=== PATIENT | male | born 1950 | race Caucasian/White ===

== ENCOUNTER 2025-08-15 20:58 | Emergency (ER) | payer MEDICARE, SELFPAY ==
--- NOTE | 2025-08-15 21:07 | ED.AMS ---
HPI - Altered Mental Status General Time Seen by Provider: 21:07 Date Seen: 08/15/25 Chief Complaint: Altered Mental Status Stated Complaint: confused, constipated Time Seen by Provider: 08/15/25 21:07 Source: patient and family (daughter) Mode of arrival: ambulatory History of Present Illness HPI narrative: Naseem is a 75 yo male who presents to the ED for evaluation of AMS. Patient presents tonight with his daughter for evaluation of confusion, increased urinary frequency, and constipation. Patient lives at home however does have children that live nearby. Yesterday patient tried calling his daughter however he kept getting the number around and calling the insurance company. Insurance called the daughter with concerns. Patient presents tonight with his other daughter who notes this episode happened yesterday however states that today she feels as if he is acting his normal self. Patient does report he did have an episode in which he has cold hands, some discomfort on the right side of his face as well as concerns that he has had some constipation and that is stool softener is not working as well as it used to. Patient does have a history of chronic constipation and typically takes a stool softener daily. Patient reports decreased p.o. intake however does note increased urinary frequency. Patient denies any dysuria, hematuria denies any recent trauma, falls. Denies any recent illnesses, fever, chest pain, cough, shortness of breath, abdominal pain. Patient reports he is feeling good at the moment. No other complaints. Related Data Home Medications ?Medication ?Instructions ?Recorded ?Confirmed docusate sodium 100 mg capsule 100 mg PO DAILY 08/15/25 08/15/25 magnesium 200 mg tablet 200 mg PO DAILY 08/15/25 08/15/25 omega 7-mwi-ajw-fish oil 1,000 mg 1 cap PO DAILY 08/15/25 08/15/25 (120 mg-180 mg) capsule (Fish Oil) Allergies Allergy/AdvReac Type Severity Reaction Status Date / Time No Known Drug Allergies Allergy Verified 08/15/25 21:07 Review of Systems Narrative: Past medical history, past surgical history, medications, allergies, family history, and social history were reviewed with the patient. No additional pertinent items. A medically appropriate review of systems was performed with pertinent positives and negatives noted in HPI, all other systems negative. Exam Narrative: Exam Narrative: General: Afebrile, no acute distress HEENT: Normocephalic, atraumatic, conjunctiva normal. PERRL, EOMI, MMM Neck: non-tender, supple Cardio: regular rate. regular rhythm Resp: Normal work of breathing, no respiratory distress, lungs clear bilaterally, no wheezing, rhonchi, rales Chest/Back: no visual signs of trauma, no midline tenderness, no CVA tenderness Abdomen: soft, non distension, no tenderness, no peritoneal signs Neuro: alert and fully oriented. CN II-XII intact. Normal strength and sensation in all extremities. Normal gait MSK: no deformities. Normal range of motion Integumentary/Skin: no rash visualized, normal color Psych: normal affect, normal behavior Const: Vital Signs, click to edit/add: Vital Signs - 24 hr 08/15/25 21:09 08/15/25 23:00 Temperature 98.2 F Pulse Rate [Right Pulse Oximeter] 80 77 Respiratory Rate 18 18 Blood Pressure [Ri ght Upper Arm] 149/89 H 136/80 Pulse Oximetry 97 97 Oxygen Delivery Me thod Room Air Course Vital Signs Vital signs: Initial Vital Signs Temperature 98.2 F 08/15/25 21:09 Temperature Source Temporal Artery Scan 08/15/25 21:09 Pulse Rate 80 08/15/25 21:09 Respiratory Rate 18 08/15/25 21:09 Blood Pressure 149/89 H 08/15/25 21:09 Blood Pressure Mean 109 H 08/15/25 21:09 Blood Pressure Position Sitting 08/15/25 21:09 Pulse Oximetry 97 08/15/25 21:09 Oxygen Delivery Method Room Air 08/15/25 21:09 Vital Signs Temperature 98.2 F 08/15/25 21:09 Pulse Rate 80 08/15/25 21:09 Respiratory Rate 18 08/15/25 21:09 Blood Pressure 149/89 H 08/15/25 21:09 Pulse Oximetry 97 08/15/25 21:09 Oxygen Delivery Method Room Air 08/15/25 21:09 Temperature 98.2 F 08/15/25 21:09 Pulse Rate 77 08/15/25 23:00 Respiratory Rate 18 08/15/25 23:00 Blood Pressure 136/80 08/15/25 23:00 Pulse Oximetry 97 08/15/25 23:00 Oxygen Delivery Method Room Air 08/15/25 21:09 MDM - Altered Mental Status MDM Narrative Medical decision making narrative: Naseem is a 75 yo male who presents to the ED for evaluation of AMS and urinary frequency. Upon arrival patient is nontoxic appearing, afebrile, no distress. Patient is slightly hypertensive upon arrival with blood pressure 149/89, otherwise hemodynamically stable vital signs within normal limits. Patient is awake, alert, oriented to person, place, time. Patient reports he is doing well and his daughter agrees. Cranial nerves 2-12 intact with no focal motor, sensory, speech, or gait deficit. Overall physical examination reassuring. Differential diagnosis includes but is not limited to infectious versus metabolic/electrolyte versus dehydration versus urinary tract infection versus less likely stroke/intracranial hemorrhage/mass. Plan for CT head, comprehensive labs, urinalysis, re-evaluation. Comprehensive labs unremarkable with white blood cell count 6.22, hemoglobin 12.7, no acute metabolic electrolyte abnormality, no transaminitis. Urinalysis with cloudy appearance, 5-10 white blood cells, positive leukocyte esterase, 2-5 red blood cells, moderate amount of bacteria. I personally reviewed interpreted CT the head which is unremarkable with no intracranial hemorrhage, mass effect. I discussed results with patient and family, given patient's slight confusion, urinary frequency, in urinalysis will treat with antibiotics and follow-up cultures. I did consider an offer observation admission however patient and daughter feel comfortable with discharge and will return if any worsening symptoms. Plan to discharge with a course of Keflex, recommend close outpatient follow-up, did discuss that if continues to have ongoing confusion would maybe consider MRI for further evaluation. Patient and family understand agrees the plan. Medical Records Attestation: I reviewed the patient's medical records. Lab Data Attestation: I reviewed the patient's lab results. Labs: Lab Results 08/15/25 08/15/25 Range/Units 21:15 21:28 WBC 6.22 (4.50-11.00) K/uL RBC 4.14 L (4.30-5.90) m/uL Hgb 12.7 L (13.5-17.5) gm/dL Hct 38.6 (37.0-53.0) % MCV 93 (80-100) fL MCH 31 (26-34) pg MCHC 33 (32-36) gm/dL RDW Coeff of Haylie 13.2 (11.5-15.5) % Plt Count 183 (140-440) K/uL Neut % (Auto) 66.0 (42.0-72.0) % Lymph % (Auto) 22.3 (20-44) % [place] % (Auto) 9.8 (0.0-11.0) % Eos % (Auto) 1.4 (0.0-7.0) % Baso % (Auto) 0.3 (0.0-3.0) % Neut # (Auto) 4.10 (1.7-7.0) K/uL Lymph # (Auto) 1.39 (0.90-2.90) K/uL [place] # (Auto) 0.60 (0.00-0.90) K/UL Eos # (Auto) 0.09 (0.00-0.50) K/uL Baso # (Auto) 0.02 (0.00-0.30) K/uL Abs Immat Gran (auto) 0.01 (0.00-0.30) K/uL Imm/Tot Granulo (auto) 0.2 % Sodium 137 (135-149) mmol/L Potassium 4.5 (3.6-5.1) mmol/L Chloride 104 (96-114) mmol/L Carbon Dioxide 28 (20-32) mmol/L Anion Gap 5 L (7-15) mEq/L BUN 23 (7-30) mg/dL Creatinine 1.2 (0.5-1.5) mg/dL Estimated Creat Clear 51.46 Estimated GFR 63 ml/min Glucose 103 (60-115) mg/dL Calcium 9.4 (8.4-10.6) mg/dL Total Bilirubin 0.9 (0.1-1.5) mg/dL AST 24 (12-35) U/L ALT 19 (4-50) U/L Alkaline Phosphatase 64 (40-150) U/L Total Protein 7.1 (6.0-8.3) g/dL Albumin 4.1 (3.3-5.0) g/dL Urine Color Yellow (Yellow) Urine Appearance Cloudy A (Clear) Urine pH 6.0 (5.0-8.5) Ur Specific [place] 1.020 (1.000-1.030) Urine Protein Trace A (Negative) Urine Glucose (UA) Negative (Negative) Urine Ketones 1+ A (Negative) Urine Blood 2+ A (Negative) Urine Nitrite Negative (Negative) Urine Bilirubin Negative (Negative) Urine Urobilinogen 0.2 (0.2-1.0) Ur Leukocyte Esterase 1+ A (Negative) Urine RBC 2-5 A (0-2) Urine WBC 5-10 A (0-5) Ur Squamous Epith Cells Few (None-Few) Amorphous Sediment Moderate A (None) Urine Bacteria Moderate A (None) Imaging Data CT scan - head: Attestation: I have reviewed the pertinent imaging results. Radiologist's impression: INDICATION: Altered mental status. TECHNIQUE: CT head without contrast. COMPARISON: None. FINDINGS: CSF spaces: Within normal limits for age. Brain parenchyma: The north-white differentiation is maintained. Patchy white matter low attenuation changes, nonspecific but likely reflecting mild chronic small vessel ischemic disease. No evidence of intracranial hemorrhage, extra-axial collection, or midline shift. Atherosclerotic calcifications of the cavernous carotids and carotid siphons. Skull base and calvarium: The visualized paranasal sinuses and mastoid air cells demonstrate no acute or significant findings. The visualized orbits are grossly unremarkable. Calvarium is intact. IMPRESSION: No acute intracranial abnormality. Discharge Plan Discharge Clinical Impression: Altered mental status, Urinary frequency Patient Disposition: Home, Self-Care Condition: Stable Additional Instructions: Please follow-up with your primary care provider in the next 2-3 days for further evaluation and follow-up. Please call to schedule an appointment. If you continue to experience symptoms you may need further testing (MRI?). Please rest, drink plenty of fluids. Please take antibiotics 3 times daily as directed. Please continue your own medications. Please return to the emergency department if any worsening symptoms. It was a pleasure taking care of you today. We hope you feel better soon. Prescriptions: No Action omega 3-fjm-sgo-fish oil [Fish Oil] 1,000 (120-180) mg capsule 1 cap PO DAILY magnesium 200 mg tablet 200 mg PO DAILY docusate sodium 100 mg capsule 100 mg PO DAILY Follow Up/Referrals: Gunnar Amor MD [Primary Care Provider, Family Practice] Stand Alone Forms: [facility] Info Instructions
[2025-08-15 21:09] VITALS: BP 149/89; PULSE 80; RESP 18; TEMP 36.8; O2SAT 97; BMI 27.4
[2025-08-15 21:22] LABS: Appearance Urine Cloudy (Clear)
--- NOTE | 2025-08-15 21:49 | CRLHL7_ITS ---
For Patients: As a result of the Century Cures Act, medical imaging exams and procedure reports are released immediately into your electronic medical record. You may view this report before your referring provider. If you have questions, please contact your health care provider. INDICATION: Altered mental status. TECHNIQUE: CT head without contrast. COMPARISON: None. FINDINGS: CSF spaces: Within normal limits for age. Brain parenchyma: The north-white differentiation is maintained. Patchy white matter low attenuation changes, nonspecific but likely reflecting mild chronic small vessel ischemic disease. No evidence of intracranial hemorrhage, extra-axial collection, or midline shift. Atherosclerotic calcifications of the cavernous carotids and carotid siphons. Skull base and calvarium: The visualized paranasal sinuses and mastoid air cells demonstrate no acute or significant findings. The visualized orbits are grossly unremarkable. Calvarium is intact. IMPRESSION: No acute intracranial abnormality. Please note that all CT scans at this facility use dose modulation, iterative reconstruction, and/or weight-based dosing when appropriate to reduce radiation dose to as low as reasonably achievable. Dictated by Artem Salcedo MD @ 08/15/2025 10:34:57 PM (Electronically Signed)
[2025-08-15 22:08] LABS: Hematocrit* 38.6 % (37.0-53.0); Hemoglobin* 12.7 gm/dL (13.5-17.5); Immature Granulocytes Abs Auto 0.01 K/uL (0.00-0.30); Immature Granulocytes Pct Auto 0.2 %; Lymphocytes Absolute Auto 1.39 K/uL (0.90-2.90); Mean Corpuscular HGB Conc 33 gm/dL (32-36); Mean Corpuscular Hemoglobin 31 pg (26-34); Mean Corpuscular Volume 93 fL (80-100); RDW Coefficient of Variation % 13.2 % (11.5-15.5); Red Blood Count* 4.14 m/uL (4.30-5.90); Slide Review Reflex No; White Blood Count* 6.22 K/uL (4.50-11.00)
[2025-08-15 22:20] LABS: Albumin* 4.1 g/dL (3.3-5.0); Chloride* 104 mmol/L (96-114); Sodium* 137 mmol/L (135-149)
[2025-08-15 22:23] LABS: Alanine Aminotransferase* 19 U/L (4-50); Alkaline Phosphatase* 64 U/L (40-150); Anion Gap 5 mEq/L (7-15); Aspartate Amino Transferase* 24 U/L (12-35); Bilirubin Total* 0.9 mg/dL (0.1-1.5); Blood Urea Nitrogen* 23 mg/dL (7-30); Carbon Dioxide* 28 mmol/L (20-32); Creatinine* 1.2 mg/dL (0.5-1.5); Est. Creatinine Clearance* 51.46; Estimated Glomerular Filt Rate 63 ml/min; Total Protein* 7.1 g/dL (6.0-8.3)
[2025-08-15 22:24] LABS: Calcium* 9.4 mg/dL (8.4-10.6); Glucose* 103 mg/dL (60-115)
[2025-08-15 22:36] LABS: Potassium* 4.5 mmol/L (3.6-5.1)
[2025-08-15 23:00] VITALS: BP 136/80; PULSE 77; RESP 18; O2SAT 97
== END 2025-08-16 | disposition home or self-care (01) ==
PROVIDERS: Emergency Provider Emergency Medicine; PCP Family Medicine
DX: R41.82 Altered mental status, unspecified (principal); R35.0 Frequency of micturition; R03.0 Elevated blood-pressure reading, without diagnosis of hypertension
CPT/HCPCS: 36415; 70450; 80053; 81001; 85025; 87086; 99284; 99285